=== PATIENT | female | born 1950 | race Caucasian/White ===

== ENCOUNTER → 2016-12-08 | Outpatient (CLI) | payer MEDICARE ==
--- NOTE | 2016-12-08 09:57 | US ---
EXAMINATION TYPE: US abdomen complete DATE OF EXAM: 12/08/2016 9:37 AM COMPARISON: CT on PACS July 02, 2014. CLINICAL HISTORY: Elevated Liver Enzymes Test R74.8. ABD pain at right of umbilicus; Crohn's Disease; gallbladder removed; prior lap/band procedure with hernia repair at site of lap/band. EXAM MEASUREMENTS: Liver Length: 19.3 cm Gallbladder Wall: surgically removed CBD: 0.6 cm Spleen: 11.6 cm Right Kidney: 10.5 x 5.6 x 4.3 cm Left Kidney: 10.2 x4.8 x 5.7 cm TECHNOLOGIST IMPRESSION: Pancreas: wnl Liver: hyperechoic suggests fatty liver; enlarged liver Gallbladder: surgically removed CBD: wnl Spleen: wnl Right Kidney: hyperechoic parallel vessel crawford noted mid pole suggests vessel wall calcification Left Kidney: wnl Upper IVC: wnl Abd Aorta: size is wnl Bowel is noted at patient's area of pain at right of umbilicus. Heterogeneous hyperechoic liver is present without intrahepatic ductal dilatation. Suspect probable f atty infiltration. Gallbladder is surgically absent. Towards end of exam scanning of the area of conc gio just right of umbilicus shows no worrisome solid or cystic mass or abnormal fluid collection. IMPRESSION: As above.
== END | disposition home or self-care (01) ==
LOC: RADUSWWP 09:04
PROVIDERS: ATTEND Family Medicine
DX: R74.8 Abnormal levels of other serum enzymes (principal)
CPT/HCPCS: 76700

== ENCOUNTER 2020-07-22 09:47 | Day surgery (SDC) | payer MEDICARE ==
[2020-07-19 15:08] VITALS: BMI 34.8
[2020-07-22] MEDS ORDERED: SODIUM CHLORIDE 0.9% 500 ML 500 ML IV ONE (10:10)
[2020-07-22 10:25] VITALS: RESP 16; TEMP 98.4
[2020-07-22 10:28] LABS: Glucose,Whole Blood 271 mg/dL (75-99)
[2020-07-22] MEDS ORDERED: INSULIN ASPART (NovoLOG) 100 UNIT/ML VIAL SQ ONE (10:45)
[2020-07-22] MEDS ORDERED: fentaNYL (PF) 50 MCG/ML 2 ML AMP ONE (12:11)
[2020-07-22] MEDS: BENZOCAINE SPRAY 1 CAN TOPICAL ONE ×2 (12:15→12:24)
[2020-07-22] MEDS ORDERED: fentaNYL (PF) 50 MCG/ML 2 ML AMP IV ONE (12:23)
[2020-07-22] MEDS ORDERED: MIDAZOLAM 2 MG/2 ML VIAL IV ONE (12:24)
[2020-07-22 12:33] VITALS: PULSE 68
[2020-07-22] MEDS ORDERED: SODIUM CHLORIDE 0.9% 1,000 ML IV SCH (12:45)
--- NOTE | 2020-07-22 13:47 | ECHOT ---
TRANSESOPHAGEAL ECHOCARDIOGRAM INDICATION: Shortness of breath with aortic regurgitation. PROCEDURE NOTE: After obtaining informed consent, transesophageal echocardiogram is performed in left lateral position using an Omni plane probe. Local and IV sedation were obtained using Xylocaine spray, Versed and fentanyl. Patient tolerated the procedure well without any obvious immediate complications. FINDINGS: 1. Aortic valve is a 3-leaflet valve without significant restriction and leaflet mobility and moderate aortic regurgitation. 2. There is mild mitral regurgitation. 3. There is mild tricuspid regurgitation. 4. Left ventricle has normal size and systolic function. Left atrium, right atrium, right ventricle seen within normal limits. 5. Interatrial septum: There is no evidence of [id number] shunt by color-flow Doppler or [id number] shunt by agitated saline contrast study. 6. Aorta is free of aneurysm. CONCLUSION: Moderate aortic regurgitation. PLAN: We have not found any clear etiology for the patient's shortness of breath on this study. MMODL / IJN: [id number] /
[2020-07-22 16:27] VITALS: BP 109/63
== END 2020-07-22 14:05 | disposition home or self-care (01) ==
LOC: CATHCVL 09:47
PROVIDERS: ATTEND Internal Medicine Cardiovascular Disease
DX: I08.3 Combined rheumatic disorders of mitral, aortic and tricuspid valves (principal); R06.02 Shortness of breath; E11.9 Type 2 diabetes mellitus without complications; E78.5 Hyperlipidemia, unspecified; Z72.0 Tobacco use; Z79.4 Long term (current) use of insulin; Z79.899 Other long term (current) drug therapy; Z79.890 Hormone replacement therapy; Z79.82 Long term (current) use of aspirin; Z88.8 Allergy status to other drugs, medicaments and biological substances; Z82.49 Family history of ischemic heart disease and other diseases of the circulatory system
CPT/HCPCS: 93312; 93320; 93325; J2250; J3010

== ENCOUNTER 2021-11-22 07:26 | Day surgery (SDC) | payer MEDICARE ==
[2021-11-21 09:43] VITALS: BMI 33.9
[~2021-11-22 07:26] MED LIST: LACTATED RINGERS 1,000 ML IV SCH; LIDOCAINE 1% (10MG/ML) FOR IV START INTRADERMA PRN
[2021-11-22 07:52] VITALS: RESP 16; TEMP 98
[2021-11-22] MEDS ORDERED: PROPOFOL 10 MG/ML 20 ML VIAL IV ONE (08:03)
[2021-11-22 08:07] LABS: Glucose,Whole Blood 212 mg/dL (75-99)
--- NOTE | 2021-11-22 08:07 | P.GSHP ---
History of Present Illness H&P Date: 11/22/21 Chief Complaint: Colon cancer screening 71-year-old female here today for colonoscopy. Patient has a history of 3 polyps during one of her first colonoscopies. I have performed 3 colonoscopies since 2008 and there were no polyps each time. No bowel complaints. Patient do es have a personal history of C. diff colitis. Past Medical History Past Medical History: Cancer, Chest Pain / Angina, Diabetes Mellitus, Hyperlipidemia, Hypertension, Liver Disease, Myocardial Infarction (AZ), Mitral Valve Prolapse (MVP), Osteoarthritis (OA), Rheumatoid Arthritis (RA), Thyroid Disorder Additional Past Medical History / Comment(s): c/o Pressure in chest, shortness of breath, dizzyness, extreme fatigue easily - tricuspid valve abn on Echocardiogram. Graves disease. Hx Heart murmur, valve leakage, arrythmia, AZ found on EKG. Hx skin cancer, squamous cell, basal cell. Fatty liver. C-diff few years ago. Last Myocardial Infarction Date:: History of Any Multi-Drug Resistant Organisms: None Reported Past Surgical History: Cholecystectomy, Hernia Repair, Joint Replacement Additional Past Surgical History / Comment(s): Total Lt Knee. Abd hernia repair. AHSAN, COLONOSCOPY Past Anesthesia/Blood Transfusion Reactions: Motion Sickness Smoking Status: Current every day smoker - Past Family History Father Family Medical History: Cancer Additional Family Medical History / Comment(s): Lung cancer Sister(s) Family Medical History: Cancer Additional Family Medical History / Comment(s): ovarian cancer Brother(s) Family Medical History: Cancer Additional Family Medical History / Comment(s): cancer in neck (agent orange) Medications and Allergies Home Medications Medication Instructions Recorded Confirmed Type Aspirin [Adult Low Dose Aspirin EC] 81 mg PO DAILY 07/20/20 11/21/21 History Diltiazem HCl [Diltiazem HCl 24Hr 180 mg PO DAILY 07/20/20 11/21/21 History ER (CD)] Ezetimibe [Zetia] 10 mg PO MOWEFR 07/20/20 11/21/21 History Insulin Aspart [NovoLOG Flexpen] 1 dose SQ AC-TID 07/20/20 11/21/21 History Insulin Glargine,Hum.rec.anlog 35 unit SQ HS 07/20/20 11/21/21 History [Lantus Solostar] Levothyroxine Sodium [Synthroid] 200 mcg PO DAILY 07/20/20 11/21/21 History Metoprolol Succinate [Toprol XL] 25 mg PO DAILY 07/20/20 11/21/21 History Nitroglycerin Sl Tabs [Nitrostat] 0.4 mg SUBLINGUAL Q5M PRN 07/20/20 11/21/21 History Sertraline [Zoloft] 100 mg PO BID 07/20/20 11/21/21 History lisinopriL [Zestril] 5 mg PO DAILY 07/20/20 11/21/21 History Allergies Allergy/AdvReac Type Severity Reaction Status Date / Time No Known Allergies Allergy Verified 11/22/21 07:47 Surgical - Exam Vital Signs Temp Pulse Resp BP Pulse Ox 98.0 F 78 16 151/68 100 11/22/21 07:50 11/22/21 07:50 11/22/21 07:50 11/22/21 07:50 11/22/21 07:50 Physical exam: General: Well-developed, well-nourished HEENT: Normocephalic, sclerae nonicteric Abdomen: Nontender, nondistended Extremities: No edema Neuro: Alert and oriented Assessment and Plan (1) Colon cancer screening Narrative/Plan: Will proceed with colonoscopy at this time Current Visit: Yes Status: Acute Code(s): Z12.11 - ENCOUNTER FOR SCREENING FOR MALIGNANT NEOPLASM OF COLON SNOMED Code(s): 359799516
--- NOTE | 2021-11-22 08:21 | P.PCN ---
Date of Procedure: 11/22/21 Procedure(s) Performed: PREOPERATIVE DIAGNOSIS: Screening, remote history of polyps POSTOPERATIVE DIAGNOSIS: Normal exam PROCEDURE: Colonoscopy ANESTHESIA: MAC SURGEON: Isidro Quintana M.D. SPECIMENS: None ENDOSCOPIC PROCEDURE: The patient was placed on the endoscopy table in the left decubitus position. The Olympus colonoscope was inserted into the anus and passed under direct visualization to the base of the cecum. The appendiceal orifice was visualized. From that point the scope was slowly withdrawn inspecting all surfaces carefully. There were no neoplastic inflammatory or polypoid lesions throughout the cecum, ascending, transverse, descending, sigmoid and rectum. There was no visible diverticulosis noted. Digital rectal examination was normal. The patient was taken to the recovery room in stable condition per anesthesia guidelines. RECOMMENDATIONS: Resume diet. Follow-up colonoscopy 7 years.
[2021-11-22 08:37] VITALS: PULSE 70
[2021-11-22 08:47] VITALS: BP 136/61
== END 2021-11-22 09:05 | disposition home or self-care (01) ==
LOC: ORWHC2ENDO 07:26
PROVIDERS: ATTEND Surgery
DX: Z12.11 Encounter for screening for malignant neoplasm of colon (principal); E11.9 Type 2 diabetes mellitus without complications; E78.5 Hyperlipidemia, unspecified; I25.2 Old myocardial infarction; M19.90 Unspecified osteoarthritis, unspecified site; E07.9 Disorder of thyroid, unspecified; M06.9 Rheumatoid arthritis, unspecified; Z86.010 Personal history of colon polyps
CPT/HCPCS: G0121; J2704